=== PATIENT | male | born 1965 | race Caucasian/White ===

== ENCOUNTER 2016-10-04 16:42 | Inpatient (IN) ==
[2016-10-04] MEDS ORDERED: VANCOMYCIN IV PER PHARMACY MISC SCH (17:19)
--- NOTE | 2016-10-04 17:49 | HISTORY AND PHYSICAL ---
HISTORY OF PRESENT ILLNESS: Mr. Shar Hodges is a 51-year-old gentleman who is well known to me. He has a history of multiple medical problems, including major depression, mixed hyperlipidemia, BPH, COPD, obstructive sleep apnea, morbid obesity and type 2 insulin dependent diabetes mellitus. He was hospitalized at [facility] from 05/23/2016 to 05/25/2016 with a left thigh abscess with cellulitis. Dr. Barrett performed an incision and drainage of the abscess. Cultures grew out group B strep agalactiae. Mr. Hodges presents to my clinic today complaining of increasing pain, swelling and erythema of his scrotum in association with fevers as high as 101.5 degrees, nausea vomiting and hard shaking rigors. He noticed a small pustule on his scrotum on Saturday and popped it. Over the past several days, he has had increasing swelling, redness and pain of the scrotum. PAST MEDICAL HISTORY: Essential hypertension, COPD, obstructive sleep apnea, gastroesophageal reflux disease, mixed hyperlipidemia, depression. PAST SURGICAL HISTORY: Bilateral arthroscopy of the knees. ALLERGIES: No known drug allergies. MEDICATIONS: Tresiba 25 mg b.i.d., Humalog 20 units t.i.d. with meals, Zyprexa 5 mg b.i.d., Zoloft 100 mg daily, lovastatin 10 mg at bedtime, tamsulosin 0.4 mg daily, Dulera 100/5 one puff b.i.d., Ventolin HFA inhaler 2 puffs q.6 hours, niacin 500 mg daily. FAMILY HISTORY: His father had hypertension and diabetes. His mother had uterine cancer. SOCIAL HISTORY: He is a former smoker. He does consume alcoholic beverages. REVIEW OF SYSTEMS: General: He denies any recent weight gain or weight loss. HEENT: He wears glasses. CARDIOVASCULAR: No chest pain. Pulmonary: He has intermittent shortness of breath with strenuous activity. GI: No reflux, sour brash, dysphagia, melena or hematochezia. Endocrine: No polyuria, no polydipsia. Skin: No easy bruisability. : No leakage of urine with coughing or laughing. Neurologic: No migraines or seizures. Psychiatric: History of depression. PHYSICAL EXAMINATION: GENERAL: This is an acutely ill-appearing 51-year-old gentleman in no apparent distress. VITAL SIGNS: Blood pressure 132/80, pulse 92, temperature 101.1 degrees, respiratory rate 18. HEENT: Fundi with arteriolar wall thickening. Pupils equal, round, reactive to light. Extraocular eye movements intact. TMs without bullae. NECK: Supple. No masses, JVD or bruits. CARDIOVASCULAR: Regular rate and rhythm. LUNGS: Clear. ABDOMEN: Soft, nontender, with active bowel sounds. No hepatosplenomegaly. No abdominal bruits. EXTREMITIES: Without edema. SKIN: No palpable purpura. : He has significant swelling of the scrotum, which is at least 5 times its normal size. There is marked erythema induration and tenderness I do not see any obvious spread into the groin which would be suggestive of necrotizing fasciitis. ASSESSMENT AND PLAN: 1. Scrotal abscess with cellulitis. I am going to admit the patient to [facility]. I will began normal saline at 125 mL/hour and broad-spectrum antibiotics, including Zosyn 4.5 g IV q.6 hours and vancomycin, pending blood cultures and a wound culture. We will consult [facility] to see the patient. 2. Type 2 insulin-dependent diabetes mellitus. We will continue an 1800 calorie [place] [employer] diet, pattern sugars, Humulin R, sliding scale. Tresiba 25 mg b.i.d. and Humalog 20 units t.i.d. with meals. 3. Chronic obstructive pulmonary disease. Clinically he is stable. We will continue Dulera 1 puff b.i.d., and use Ventolin HFA inhaler 2 puffs q.6 hours as needed for shortness of breath. 4. Given the patient's comorbid conditions and clinical course, I believe that it is absolutely necessary to admit him to the hospital as attempting to treat him as an outpatient will pose significant and potential harm to the patient. I anticipate that the patient will be in the hospital for at least 2 midnights and I will therefore place him in inpatient status. I will begin Lovenox 40 mg subcutaneously daily for deep venous thrombosis prophylaxis.
[2016-10-04 18:07] LABS: MANUAL DIFF NEEDED? NO
[2016-10-04 18:21] LABS: BASO% 0.4 % (0.0-0.8); EOS# 0.11 X1000 (0.0-0.7); EOS% 0.8 % (0.0-10.0); HEMATOCRIT 40.1 % (42.0-52.0); HEMOGLOBIN 13.7 g/dL (14.0-18.0); IMM GRAN# 0.04 X1000 (0.0-0.04); IMM GRAN% 0.3 % (0.0-0.5); LYMPH# 1.64 X1000 (1.2-3.4); LYMPH% 12.3 % (20.5-51.1); MCH 29.7 PG (27-31); MCHC 34.2 g/dL (33-37); MONO# 0.77 X1000 (0.11-0.59); MONO% 5.8 % (1.7-9.3); MPV 10.9 FL (7.4-10.4); NEUT% 80.4 % (42.2-75.2); PLT 246 X1000 (130-400); RBC 4.61 XMIL (4.7-6.1)
[2016-10-04] MEDS: LOVENOX SUBQ SCH (18:28)
[2016-10-04 18:48] LABS: AGAP 16; ALBUMIN 3.5 g/dL (3.5-5.0); ALKALINE PHOSPHATASE 103 U/L (32-122); BUN 8 mg/dL (8-22); CALCIUM 8.6 mg/dL (8.8-10.2); CHLORIDE 90 mmol/L (98-107); COSMO 269; GOT 11 U/L (10-34); GPT 15 U/L (10-44); POTASSIUM 3.6 mmol/L (3.5-5.1); SODIUM 127 mmol/L (136-145); TCO2 21 mmol/L (25-35); TOTAL PROTEIN 7.2 g/dL (6.3-8.3)
[2016-10-04] MEDS: ZOSYN 4.5 GM/NS 100 ML IV SCH (18:51)
[2016-10-04] MEDS: ZYPREXA PO SCH (19:40)
[2016-10-04] MEDS: LANTUS SUBQ SCH (19:40)
[2016-10-04] MEDS: NAPROSYN PO SCH (19:40)
[2016-10-04] MEDS ORDERED: MEVACOR PO SCH (21:00)
[2016-10-04] MEDS ORDERED: VANCOMYCIN 2 GM in NS 500 ML IV SCH (21:00)
[2016-10-05] MEDS: LANTUS SUBQ SCH (00:41)
[2016-10-05] MEDS: ZYPREXA PO SCH ×3 (00:41→23:09)
[2016-10-05] MEDS: NAPROSYN PO SCH ×3 (00:41→23:08)
[2016-10-05] MEDS: ZOSYN 4.5 GM/NS 100 ML IV SCH ×5 (00:46→23:08)
[2016-10-05] MEDS ORDERED: FLUZONE QUAD 2016-2017 SYRINGE IM ONE (06:00)
[2016-10-05] MEDS ORDERED: HUMALOG SUBQ SCH ×2 (07:00→16:00)
[2016-10-05] MEDS ORDERED: LANTUS SUBQ SCH (08:06)
--- NOTE | 2016-10-05 09:08 | PROGRESS NOTE ---
DATE: 10/05/2016 SUBJECTIVE: Mr. Hodges was admitted with cellulitis and abscess of the scrotum. He has a little bit less swelling and erythema this morning. He is still with complaint of a lot of scrotal pain. He did have a leukocytosis of 13,000. His blood pressure is well controlled. He denies any chest pain, palpitations, or anginal equivalents. Blood sugars are fluctuating. He has polyuria and polydipsia. OBJECTIVE: Vital Signs: Temperature 98.1 degrees, pulse 55, respirations 18, BP 115/69. CV: Regular rate and rhythm. Lungs: Clear. Abdomen: Soft, nontender, with active bowel sounds. : He has marked swelling of the scrotum. There is erythema and induration along the entire scrotal sac. There is some induration trending into the groin on the left. I do not see any spread of infection up the buttocks. ASSESSMENT AND PLAN: 1. Cellulitis of the scrotum. We will continue broad-spectrum antibiotics including Zosyn and vancomycin pending cultures. I will consult Dr. Shaver to see the patient. At this point, I do not see any obvious evidence of necrotizing fasciitis, but we will monitor him closely. 2. Type 2 insulin-dependent diabetes mellitus. Blood sugars are too high. I am going to increase the Lantus to the 35 units subcutaneously b.i.d. and increase the Humalog to 30 units t.i.d. with meals.
[2016-10-05] MEDS: FLOMAX PO SCH (09:41)
[2016-10-05] MEDS: ASPIRIN PO SCH (09:42)
[2016-10-05] MEDS: NIACIN PO SCH (09:42)
[2016-10-05] MEDS: ZOLOFT PO SCH (09:42)
[2016-10-05] MEDS: HUMALOG SUBQ SCH ×2 (09:52→16:43)
--- NOTE | 2016-10-05 12:12 | PROGRESS NOTE ---
DATE: 10/05/2016 SUBJECTIVE: Mr. Hodges was admitted to [facility] with a scrotal abscess and cellulitis. He still has significant swelling of the scrotum, but the scrotal sac seems less erythematous, less indurated, and smaller as compared to admission. He is on Zosyn and vancomycin pending blood cultures. He has a longstanding history of type 2 insulin-dependent diabetes mellitus. His blood sugars are fluctuating. He has polyuria and polydipsia. OBJECTIVE: Vital signs: Temperature 97.9 degrees, pulse 62, respirations 16, blood pressure 112/52. Cardiovascular: Regular rate and rhythm. Lungs: Clear. Abdomen: Soft, nontender, with active bowel sounds. Genitourinary: There is marked swelling, erythema, and induration of the scrotal sac. There is some induration in the inner left-sided groin. ASSESSMENT AND PLAN: 1. Scrotal abscess with cellulitis. I will continue intravenous antibiotics including vancomycin and Zosyn pending cultures. We will consult Dr. Shaver to see the patient. 2. Type 2 insulin-dependent diabetes mellitus, poorly controlled. Sugars are way too high. We will continue pattern sugars, Humulin R sliding scale, and I will increase the Humalog to 30 units t.i.d. with meals and increase the Lantus to 35 units b.i.d.
[2016-10-05] MEDS: TYLENOL PO PRN ×2 (12:48→23:08)
[2016-10-05] MEDS: VANCOMYCIN 2 GM in NS 500 ML IV SCH (14:44)
--- NOTE | 2016-10-05 16:47 | CONSULTATION ---
DATE OF CONSULTATION: 10/05/2016 CONSULTING PHYSICIAN: Dr. Sergey Carreon. Consultation for scrotal cellulitis and groin cellulitis. HISTORY OF PRESENT ILLNESS: A 51-year-old male with poorly-controlled diabetes who has a recent history of left posterior thigh abscess in April 2016 requiring incision and debridement by General Surgery. He reports feeling a "bump" in his groin and "popping it." He then reports he continued to squeeze it as he felt more pressure and discomfort. Over the next several days he developed significant redness and swelling in the groin area that extended to his scrotum and suprapubic area. He does report fevers up to 101.5. He denies significant drainage. PAST MEDICAL HISTORY: 1. Diabetes mellitus. 2. Morbid obesity. 3. COPD. 4. Hyperlipidemia. 5. Depression. 6. Obstructive sleep apnea. 7. GERD. PAST SURGICAL HISTORY: 1. Knee arthroscopy. 2. Incision and drainage of posterior thigh. ALLERGIES: No known drug allergies. HOME MEDICATIONS: Tresiba, Humalog, Zyprexa, Zoloft, lovastatin, tamsulosin, Dulera, Ventolin, niacin. SOCIAL HISTORY: Former smoker, occasional alcohol, denies illicit drugs. FAMILY HISTORY: Negative for malignancies. REVIEW OF SYSTEMS: A review of systems reviewing 12 systems is negative except for the HPI. PHYSICAL EXAMINATION: T 98, P 67, BP 113/46.General: No acute distress. Pleasant male. HEENT: Normocephalic atraumatic. Pulmonary: Bilateral breath sounds. Cardiovascular: Regular rate. Abdomen: Protuberant. Nontender to palpation. : Normal penile shaft and urethral meatus. Indurated and erythematous scrotum with the left hemiscrotum involved more than the right side. I could not palpate the left testis due to induration. The induration extends into the inguinal ring and toward the suprapubic area. He also has some erythema over his posterior thigh but does not involve the perineum or buttocks. There is no crepitus, fluctuance or purulent drainage seen by me today pending in any of the described area. Digital rectal examination: Deferred today the pain due to scrotal discomfort. Dermatologic: No obvious skin rashes. Neurologic: Alert and oriented x3. Psychiatric: Appropriate mood and affect. PERTINENT LABS: White cell count of 13,000. Creatinine of 0.9. His glucose was documented at 375. PERTINENT IMAGES: None. ASSESSMENT AND PLAN: A 51-year-old male with a scrotal and groin cellulitis. I do not appreciate any abscess or any evidence of Gonzalez's gangrene at this time. I have discussed with the patient that without a definitive fluctuance or obvious abscess to perform an incision and drainage would likely yield low result. We discussed that cellulitis is better to be treated with intravenous antibiotics. He is on Zosyn and vancomycin per Dr. Carreon. I have discussed with the patient that if his condition deteriorates or he develops an obvious abscess site then he would benefit from incision and drainage. PLAN: I agree with broad-spectrum antibiotics. I did not see a place to culture his scrotum at this time. We will follow the patient. Thank you for the consultation.
[2016-10-05] MEDS: LOVENOX SUBQ SCH (18:34)
[2016-10-05] MEDS: INSULIN DEGLUDEC 25 UNIT SQ SCH (23:09)
[2016-10-06] MEDS: VANCOMYCIN 2 GM in NS 500 ML IV SCH ×2 (02:41→16:55)
[2016-10-06] MEDS: ZOSYN 4.5 GM/NS 100 ML IV SCH ×3 (06:22→21:42)
[2016-10-06] MEDS ORDERED: INSULIN PEN NEEDLES ONE (06:56)
[2016-10-06] MEDS: HUMALOG SUBQ SCH ×2 (07:14→16:55)
[2016-10-06] MEDS: INSULIN DEGLUDEC 25 UNIT SQ SCH (10:02)
[2016-10-06] MEDS: TYLENOL PO PRN (10:04)
[2016-10-06] MEDS: ASPIRIN PO SCH (10:04)
[2016-10-06] MEDS: NAPROSYN PO SCH ×2 (10:04→21:42)
[2016-10-06] MEDS: NIACIN PO SCH (10:05)
[2016-10-06] MEDS: ZOLOFT PO SCH (10:05)
[2016-10-06] MEDS: ZYPREXA PO SCH ×2 (10:05→21:42)
[2016-10-06] MEDS: FLOMAX PO SCH (10:05)
[2016-10-06] MEDS: DULERA 100 MCG/5 MCG INHALER INH SCH (10:08)
--- NOTE | 2016-10-06 12:28 | CONSULTATION ---
DATE OF CONSULTATION: 10/06/2016 SUBJECTIVE: Mr. Hodges reports a decent night overnight. He states his pain is minimally worse. He denies fever or chills. He does deny spontaneous drainage onto the bedsheets. OBJECTIVE: Vital signs: T is 97.6, P is 59, BP 123/56, General: In no acute distress. Abdomen: Protuberant, nontender to palpation. : Area of erythema has extended from the scrotum to his penile shaft. There is still no perineal involvement. There is no fluctuance appreciated. No crepitance, but there is an approximately 6 or 8 mm spontaneous tract in his left groin that appears to have opened up and drained onto the bedsheets. LABS: None today. ASSESSMENT: A 51-year-old male with cellulitis who is clinically mildly worse. I have discussed with the patient that he does not have a definitive abscess, however, he has had some drainage, and that if he does not improve would continue IV antibiotics. He would benefit from incision and debridement. I have offered to do it as early as tomorrow, given the fact that he just at breakfast. He states he wants to wait a couple of days and not to do anything until Saturday at earliest. PLAN: 1. Continue IV antibiotics. 2. Will not proceed to the OR, although if he clinically gets worse, I would strongly recommend for him to do something.
--- NOTE | 2016-10-06 12:49 | PROGRESS NOTE ---
DATE: 10/06/2016 SUBJECTIVE: The patient states that clinically he is not really a whole bunch better. He has seen urologist twice here, and they wanted to try antibiotics over the weekend to see if they can stabilize him rather than diving directly into any type of surgical procedure on his scrotum. His pain is reasonably controlled. His fever has been low grade, and he is not uncomfortable. OBJECTIVE: Vital signs: 97.6, 59, 17, 123/56. Fluid balance not kept. General: Patient is alert, oriented, conversive, and appropriate. He is morbidly obese. Lungs: Clear to auscultation. Cardiovascular: Regular, not tachycardic. Abdomen: Protuberant. Extremities: Extremities show only a trace of peripheral edema. Dr. Shaver reviewed the patient's cellulitis earlier today, and I have not done that examination. ASSESSMENT AND PLAN: 1. The patient's cellulitis will continue to be treated with Zosyn. Blood cultures are negative at 48 hours. Hopefully we can avoid surgery. Dr. Shaver is following. 2. Patient's diabetes is not well controlled. I have increased his Tresiba by 3 units per dose to hopefully give him a higher basal insulin dose. We will continue to monitor his blood sugars. He is on a diabetic diet. 3. In regard to his diabetes, it is noted the patient is on Zyprexa, which seems to exacerbate weight gain and diabetic situations. Consideration for use of Geodon instead or discontinuation of an antipsychotic medication altogether in the future should be undertaken. INDICATIONS FOR CONTINUED HOSPITALIZATION: The patient is only marginally clinically improved. We will continue to follow with subspecialty medicine, monitor temperature, and recheck a white count in the morning.
[2016-10-06] MEDS: NORCO-5 PO PRN ×2 (16:52→22:58)
[2016-10-06] MEDS: LOVENOX SUBQ SCH (17:02)
[2016-10-06] MEDS: INSULIN DEGLUDEC 28 UNIT SQ SCH (21:42)
[2016-10-07] MEDS: VANCOMYCIN 2 GM in NS 500 ML IV SCH ×2 (04:41→16:54)
[2016-10-07 05:34] LABS: MANUAL DIFF NEEDED? NO
[2016-10-07 05:44] LABS: BASO% 0.7 % (0.0-0.8); EOS# 0.48 X1000 (0.0-0.7); EOS% 5.2 % (0.0-10.0); HEMOGLOBIN 12.8 g/dL (14.0-18.0); IMM GRAN# 0.04 X1000 (0.0-0.04); IMM GRAN% 0.4 % (0.0-0.5); LYMPH# 1.73 X1000 (1.2-3.4); LYMPH% 18.9 % (20.5-51.1); MCH 29.8 PG (27-31); MCHC 33.7 g/dL (33-37); MCV 88.6 FL (81-99); MONO# 0.47 X1000 (0.11-0.59); MONO% 5.1 % (1.7-9.3); MPV 10.3 FL (7.4-10.4); NEUT% 69.7 % (42.2-75.2); PLT 285 X1000 (130-400); RBC 4.29 XMIL (4.7-6.1)
[2016-10-07 06:20] LABS: AGAP 12; ALBUMIN 2.8 g/dL (3.5-5.0); ALKALINE PHOSPHATASE 82 U/L (32-122); BUN 8 mg/dL (8-22); CALCIUM 7.7 mg/dL (8.8-10.2); CHLORIDE 102 mmol/L (98-107); COSMO 277; GOT 10 U/L (10-34); GPT 10 U/L (10-44); POTASSIUM 3.2 mmol/L (3.5-5.1); SODIUM 136 mmol/L (136-145); TCO2 22 mmol/L (25-35); TOTAL BILIRUBIN 0.33 mg/dL (0.20-1.00); TOTAL PROTEIN 6.5 g/dL (6.3-8.3)
[2016-10-07] MEDS: ZOSYN 4.5 GM/NS 100 ML IV SCH ×4 (06:57→20:36)
[2016-10-07] MEDS: NORCO-5 PO PRN ×3 (07:02→18:54)
[2016-10-07] MEDS: DULERA 100 MCG/5 MCG INHALER INH SCH ×2 (07:48→18:24)
[2016-10-07] MEDS: ZOLOFT PO SCH (08:44)
[2016-10-07] MEDS: NAPROSYN PO SCH ×2 (08:44→20:37)
[2016-10-07] MEDS: NIACIN PO SCH (08:44)
[2016-10-07] MEDS: ASPIRIN PO SCH (08:45)
[2016-10-07] MEDS: FLOMAX PO SCH (08:45)
[2016-10-07] MEDS: INSULIN DEGLUDEC 28 UNIT SQ SCH ×2 (08:45→20:37)
[2016-10-07] MEDS: HUMALOG SUBQ SCH ×3 (08:49→16:54)
[2016-10-07] MEDS ORDERED: KLOR-CON PO ONE (10:37)
--- NOTE | 2016-10-07 13:06 | PROGRESS NOTE ---
DATE: 10/07/2016 SUBJECTIVE: The patient states he feels like the swelling in scrotal area is more than it has been. He took a shower this morning and had some bloody drainage from the open wound site. Overall his pain is reduced and improved with the use of some narcotics about twice a day. We discussed his use of Zyprexa and he was not sure why he is taking and so I am going to reduce the dose and hopefully we can maintain some better glycemic control and that may afford him some weight loss in the future. VITAL SIGNS: 98, 108/52, 60 and 16. He has been afebrile for the last 24 hours. PHYSICAL EXAMINATION: General: He is a well-developed, obese white male, in no acute distress. He is alert, oriented, conversive, and appropriate. Lungs: Clear. Cardiovascular: Regular. Genitourinary: I did not view the scrotal wound and will leave that to the urology [facility] consultant. LABORATORIES: White cell count is 9.1, hematocrit 38. Potassium was slightly low at 3.2. Blood sugars are trending down slightly. This morning it was 173. ASSESSMENT AND PLAN: 1. The patient's cellulitis and scrotal abscess will continue to be treated with Zosyn. Blood cultures were negative at [address] Shaver is following. Hopefully, we can avoid surgery. 2. The patient's diabetes is not well controlled. In addition to increasing his Tresiba I have added a lunchtime shot of 15 units of Humalog. 3. I have reduced the patient's Zyprexa dose down to 2.5 mg p.o. at bedtime. 4. The patient's indication for continued hospitalization are persistent swelling and cellulitis in scrotal area. We will continue antibiotics and monitoring of temperature and try to achieve better glycemic control in the hopes of improving his ability for wound healing and infection resistance.
[2016-10-07] MEDS ORDERED: SODIUM CHLORIDE 0.9% 10 ML ONE (13:30)
--- NOTE | 2016-10-07 16:17 | PROGRESS NOTE ---
DATE: 10/07/2016 SUBJECTIVE: Mr. Hodges reports his pain had slightly worsened. He is not able to visualize the scrotum due to his body habitus but he does report more swelling as evident by palpation. He denies fevers. He is on broad-spectrum antibiotics. OBJECTIVE: Vital Signs: T 98, degrees, P 60, BP 108/52. General: No acute distress. Pleasant male. Abdomen: Protuberant, nontender palpation. : His penile shaft is more edematous. Scrotum was more edematous as well, on the left inferior portion of scrotum it does appear like he might have a area of fluctuance which is where he had spontaneous drainage on the sheet the day before. Perineum is still not involved, there is no crepitus. No obvious evidence of gangrene. PERTINENT LABS: White cell count is 9000, creatinine is 0.89. ASSESSMENT: A 51-year-old male with scrotal and groin cellulitis which is not rapidly responded to intravenous antibiotics. In fact clinically he is somewhat worse. I have offered him yesterday to perform incision and debridement but he declined. I have explained to him today that it is unlikely that antibiotics will resolve his issue and he would benefit from incision and debridement of the scrotal and inguinal area. We discussed risks associated with the procedure including but not limited to, bleeding, infection, injury to adjacent structures, recurrence of infection, need for additional interventions. He voiced understanding and wants to proceed and is in agreement. PLAN: 1. NPO after midnight. 2. To operating room tomorrow for incision and debridement of scrotal abscess.
[2016-10-07] MEDS: LOVENOX SUBQ SCH (16:55)
[2016-10-07] MEDS: ZYPREXA PO SCH (22:01)
[2016-10-08] MEDS: DULERA 100 MCG/5 MCG INHALER INH SCH ×4 (00:44→22:30)
[2016-10-08] MEDS: ZOSYN 4.5 GM/NS 100 ML IV SCH ×4 (03:00→22:31)
[2016-10-08] MEDS: VANCOMYCIN 2 GM in NS 500 ML IV SCH ×2 (04:49→17:39)
[2016-10-08] MEDS: HUMALOG SUBQ SCH ×3 (06:28→16:43)
[2016-10-08] MEDS: NORCO-5 PO PRN (06:47)
[2016-10-08] MEDS: ZOLOFT PO SCH (09:34)
[2016-10-08] MEDS: FLOMAX PO SCH (09:35)
[2016-10-08] MEDS: NIACIN PO SCH (09:36)
[2016-10-08] MEDS: NAPROSYN PO SCH (09:36)
[2016-10-08] MEDS: INSULIN DEGLUDEC 28 UNIT SQ SCH ×2 (09:37→21:10)
[2016-10-08] MEDS ORDERED: NEOSPORIN G.U. IRRIGANT ONE (13:02)
[2016-10-08] MEDS ORDERED: LR 1,000 ML ONE ×2 (13:42→14:55)
[2016-10-08] MEDS: DILAUDID ONE ×2 (13:53→14:03)
--- NOTE | 2016-10-08 14:44 | PROGRESS NOTE ---
DATE: 10/08/2016 SUBJECTIVE: The patient voices no complaints. He is scheduled for incision and debridement of scrotal abscess today. Dr. Shaver's analysis from yesterday was reviewed through his progress note with the patient and he was amenable to proceeding. He has been NPO after midnight but his blood sugars are better than they have been throughout his hospitalizations, now in the 120-160 range. OBJECTIVE: Vital signs: 98.7, 67, 16 116/51, 98% saturated on room air. Lungs: Clear. Cardiovascular: Regular. : Scrotal wound was not observed. ASSESSMENT AND PLAN: 1. The patient is scheduled for debridement per Dr. Shaver today. 2. We will continue the patient's Tresiba and Humalog when he resumes eating postoperatively. We will continue to monitor his blood sugar as this will be very important for his wound healing.
[2016-10-08] MEDS ORDERED: XYLOCAINE-MPF 2% ONE (14:55)
[2016-10-08] MEDS ORDERED: ANESTHESIA PB SET 88 IN 5742 ONE (14:55)
[2016-10-08] MEDS ORDERED: EXTENSION SET 32 IN 4522 ONE (14:55)
[2016-10-08] MEDS ORDERED: MORPHINE IV PRN (15:01)
[2016-10-08] MEDS ORDERED: VERSED ONE (15:13)
[2016-10-08] MEDS ORDERED: DIPRIVAN 1% ONE (15:13)
[2016-10-08] MEDS ORDERED: FENTANYL ONE (15:13)
--- NOTE | 2016-10-08 16:42 | OPERATIVE NOTE ---
PROCEDURE DATE: 10/08/2016 SURGEON: Kris Shaver MD PREOPERATIVE DIAGNOSES: 1. Scrotal abscess. 2. Cellulitis. 3. Hydrocele. PRIMARY PROCEDURES: Incision and debridement of scrotal, perineal, and groin abscesses. INDICATIONS: A 51-year-old male with poorly controlled diabetes who had an abscess of his posterior thigh several months ago. He presented with swelling in the scrotum, which progressively worsened. He was admitted to the hospital and started on broad-spectrum antibiotics. He originally did not have any evidence of fluctuance, but after couple days of IV antibiotics. He developed spontaneous drainage toward his left inferior portion of the scrotum and groin. He was counseled on drainage and risks were explained. FINDINGS: The scrotum mainly had reactive fluid consistent with a hydrocele, but there was some purulent drainage at the base of the scrotum, perineum was involved to an extent with majority of the purulent material extracted from the groin area. Adequate hemostasis at conclusion of the case. The wound fluid was sent off for culture. DESCRIPTION OF PROCEDURE: After obtaining informed consent, patient was brought to the operating room. Perioperative antibiotics and laryngeal mask airway anesthesia were administered. He was placed in lithotomy position with his upper and lower extremities appropriately padded. He was prepped and draped in sterile fashion. An 11 blade knife was used to make an incision along the left groin area, copious amount of fluid with some purulent material was extracted. The surgeon's finger was used to dissect along the natural planes. I dissected nearly to the level of the external inguinal ring. It did not appear that there was extension beyond that. I then freed up and dissected tissues toward the perineum, once again expressing some more fluid, which was concerning for pus, a counter incision was made in the perineal area to allow adequate gravity drainage. Finally counter incision was made in the scrotum. I made sure with finger dissection that all of the incisions connected. We then used copious irrigation with irrigant to clear out all the involved pockets. Once that was done, a [address] drain was placed affectively draining all [address] were secured to the skin with 2-0 silk suture. Gauze soaked with irrigant was packed into the perineal wound. He was extubated and taken to PACU for further recovery. ESTIMATED BLOOD LOSS: 50 mL. COMPLICATIONS: None. DISPOSITION: To PACU subsequently floor for observation with pain medications and Ct drain due to gravity drainage.
[2016-10-08] MEDS: PERIDEX MT SCH (21:08)
[2016-10-08] MEDS: ZYPREXA PO SCH (21:13)
[2016-10-08] MEDS: NORCO-10 PO PRN (22:19)
[2016-10-09] MEDS: ZOSYN 4.5 GM/NS 100 ML IV SCH ×4 (01:01→21:44)
[2016-10-09] MEDS: NORCO-10 PO PRN ×4 (04:51→21:43)
[2016-10-09] MEDS: VANCOMYCIN 2 GM in NS 500 ML IV SCH ×2 (05:17→17:35)
[2016-10-09] MEDS: HUMALOG SUBQ SCH ×3 (06:43→17:37)
[2016-10-09] MEDS: TYLENOL PO PRN (07:39)
[2016-10-09] MEDS: PERIDEX MT SCH ×2 (09:41→21:44)
[2016-10-09] MEDS: FLOMAX PO SCH (09:42)
[2016-10-09] MEDS: ZOLOFT PO SCH (09:42)
[2016-10-09] MEDS: INSULIN DEGLUDEC 28 UNIT SQ SCH ×2 (09:43→21:44)
[2016-10-09] MEDS: NIACIN PO SCH (09:48)
[2016-10-09] MEDS ORDERED: INSULIN PEN NEEDLES ONE (15:21)
[2016-10-09] MEDS: DULERA 100 MCG/5 MCG INHALER INH SCH (18:25)
[2016-10-09] MEDS ORDERED: DULCOLAX PO PRN (19:13)
--- NOTE | 2016-10-09 21:25 | PROGRESS NOTE ---
DATE: 10/09/2016 SUBJECTIVE: The patient's chart was reviewed. In summary, patient was admitted on 10/04/16 secondary to a scrotal abscess with associated cellulitis. The patient was placed on broad- spectrum antibiotics. Unfortunately, despite aggressive measures, patient's condition continued to progress. Dr. Shaver was consulted. Ultimately, an incision and debridement of the scrotal, perineal, and groin abscesses were performed on 10/08/16. Cultures were drawn and have grown gram positive cocci. Postoperatively, patient states he has done reasonably well. This morning, patient notes postsurgical pain, but overall improvement. He denies systemic symptoms, including fevers, chills, nausea, vomiting, shortness of breath, or chest discomfort. His blood sugars have been treated with insulin therapy, titrated over the weekend by Dr. De. Blood sugars have improved considerably. OBJECTIVE: Vital signs: Temperature maximum 98.1 degrees, heart rate 55-74, respirations 14-18, blood pressure 105-122/46-64. General: No acute distress. Cardiovascular: Regular rate and rhythm. No significant murmurs, rubs, or gallops. Pulmonary: Clear to auscultation bilaterally. Abdomen: Soft, nontender, nondistended. Positive bowel sounds. Extremities: Moves all extremities well. No significant clubbing or cyanosis. Patient has 1+ lower extremity edema bilaterally. Dermatologic: Evaluation reveals a dressed scrotal wound. LABORATORY DATA: None. ASSESSMENT AND PLAN: 1. Scrotal abscess/scrotal cellulitis-patient is status post incision and debridement of multiple abscesses. I appreciate Dr. Shaver's consultation. For now, we will continue broad-spectrum antibiotic coverage. We will follow up culture data. 2. Diabetes-as above, over the weekend Dr. De titrated insulin to achieve adequate control. For now, we will continue his current regimen. 3. Chronic obstructive pulmonary disease-we will continue patient on Dulera therapy. His symptoms are controlled. 4. Constipation-the patient has experienced increased constipation while hospitalized. This likely is secondary to a combination of pain medications and inactivity. We will add Colace twice daily and as needed Dulcolax. 5. Disposition-at this point, patient continues to require alf care in a hospital setting. We will plan discharge home once appropriate.
[2016-10-09] MEDS: ZYPREXA PO SCH (21:43)
[2016-10-09] MEDS: COLACE PO SCH (21:44)
[2016-10-09] MEDS: ZOFRAN IV PRN (21:50)
[2016-10-10] MEDS: ZOSYN 4.5 GM/NS 100 ML IV SCH ×4 (02:30→20:30)
[2016-10-10] MEDS: NORCO-10 PO PRN ×4 (04:54→20:26)
[2016-10-10] MEDS: DULERA 100 MCG/5 MCG INHALER INH SCH ×2 (07:31→20:15)
[2016-10-10] MEDS: HUMALOG SUBQ SCH ×3 (08:59→17:25)
[2016-10-10] MEDS: NIACIN PO SCH (09:00)
[2016-10-10] MEDS: PERIDEX MT SCH ×2 (09:00→21:27)
[2016-10-10] MEDS: FLOMAX PO SCH (09:03)
[2016-10-10] MEDS: ZOLOFT PO SCH (09:04)
[2016-10-10] MEDS: COLACE PO SCH ×2 (09:04→21:48)
[2016-10-10] MEDS: INSULIN DEGLUDEC 28 UNIT SQ SCH ×2 (09:04→21:48)
[2016-10-10 10:57] LABS: MANUAL DIFF NEEDED? NO
[2016-10-10 11:04] LABS: EOS# 0.42 X1000 (0.0-0.7); EOS% 5.8 % (0.0-10.0); HEMATOCRIT 33.2 % (42.0-52.0); HEMOGLOBIN 10.8 g/dL (14.0-18.0); IMM GRAN# 0.04 X1000 (0.0-0.04); IMM GRAN% 0.5 % (0.0-0.5); LYMPH# 1.35 X1000 (1.2-3.4); LYMPH% 18.5 % (20.5-51.1); MCH 29.8 PG (27-31); MCHC 32.5 g/dL (33-37); MCV 91.5 FL (81-99); MONO# 0.55 X1000 (0.11-0.59); MONO% 7.5 % (1.7-9.3); MPV 9.9 FL (7.4-10.4); NEUT% 66.7 % (42.2-75.2); PLT 290 X1000 (130-400); RBC 3.63 XMIL (4.7-6.1)
[2016-10-10 11:32] LABS: ALBUMIN 2.7 g/dL (3.5-5.0); POTASSIUM 3.6 mmol/L (3.5-5.1); TOTAL BILIRUBIN 0.42 mg/dL (0.20-1.00); TOTAL PROTEIN 6.3 g/dL (6.3-8.3)
[2016-10-10] MEDS: ZOFRAN IV PRN ×2 (12:44→21:38)
--- NOTE | 2016-10-10 14:49 | PROGRESS NOTE ---
DATE: 10/10/2016 SUBJECTIVE: This morning, patient states he is feeling reasonably well. Overnight, patient states he did not sleep well secondary to intermittent discomfort. He complains of increasing scrotal swelling. He denies systemic symptoms including fevers, chills, nausea, vomiting, shortness of breath, or chest discomfort. His p.o. intake is adequate. Culture data returned today positive for Streptococcus agalactiae sensitive to ampicillin, vancomycin, levofloxacin and penicillin. OBJECTIVE: Vital Signs: T-max 98.4 degrees, heart rate 50 2-64, respirations 14 to 18, blood pressure 105 to 120/51 to 65. General: Well nourished, well developed, in no acute distress. Cardiovascular: Regular rate and rhythm. No significant murmurs, rubs, or gallops. Pulmonary: Clear to auscultation bilaterally. Abdomen: Soft, nontender, nondistended. Positive bowel sounds. Extremities: Moves all extremities well with 2+ lower extremity edema bilaterally. Dermatologic: Evaluation reveals improvement in the scrotal cellulitis. Scrotal examination reveals significant edema. LABORATORY DATA: White blood cell count 7.30, hemoglobin 10.8, hematocrit 33.2, platelet count 290,000. Sodium 137, potassium 3.6, chloride 103, bicarb 23, BUN 14, creatinine 2.2. Glucose 144, calcium 8, total bilirubin 0.42, total protein 6.3, albumin 2.7, alkaline phosphatase 65, AST 13, ALT 11. ASSESSMENT AND PLAN: 1. Scrotal abscess/scrotal cellulitis - The patient is postoperative day incision and debridement of scrotal abscesses. The patient tolerated the procedure reasonably well. He continues to have intermittent pain, but overall is improving. The patient's cultures grew Streptococcus agalactiae. We will discontinue vancomycin. We will continue Zosyn therapy. 2. Scrotal edema - Patient has considerable scrotal edema on examination today. Unfortunately, because patient has developed acute renal failure, I am unable to diurese. We will follow patient's renal function. We will encourage elevation of the scrotum. We will follow this as well. 3. Acute renal failure - This is quite curious. Patient's BUN is normal. Creatinine is increased to 2.2. As above, we will discontinue vancomycin secondary to sensitivities. At this point, I am hesitant to start IV fluids in the setting of volume overload state. We will follow patient's renal function closely. 4. Diabetes - The patient has achieved significant improvement in his blood sugars. We will titrate insulin therapy. We will continue his current regimen. 5. Chronic obstructive pulmonary disease - We will continue Dulera therapy. Symptoms are reasonably controlled. 6. Constipation - Patient was started on Colace twice daily and Dulcolax as needed yesterday. He is having adequate bowel movements at present time. 7. Disposition - At this point, patient continues to require long term care in the hospital setting. We will plan to discharge home once appropriate.
--- NOTE | 2016-10-10 15:55 | PROGRESS NOTE ---
DATE: 10/10/2016 SUBJECTIVE: Mr. Hodges had a decent night. He reports improving pain control. He was able to shower. OBJECTIVE: Vital signs: Temperature is 98.4, pulse 52, and BP 105/51. General: No acute distress. Abdomen: Protuberant. Nontender to palpation. : Persistently swollen scrotum. Two [place] drains are in place. Serosanguineous discharge on the sheets and chux pads, no evidence of fluctuance, crepitus, or gangrenous tissue noted. The perineum is involved but not past the midline. PERTINENT LABS: White cell count of 7,000, hematocrit of 32, and creatinine of 2.2. CULTURES: His wound culture so far is growing gram-positive cocci. ASSESSMENT: A 51-year-old male status-post scrotal, perineal, and inguinal abscesses that were all drained. I have explained to the patient again that he will go home with drains and I will see him in the clinic next week and remove them at that point. I have educated him on the use of feminine pads versus depends in the interim as he will continue to have serosanguineous drainage while the drains are in place. He voiced understanding. PLAN: 1. Awaiting final culture results in order to place him on appropriate antibiotics. 2. Agree with broad-spectrum coverage for now. 3. We will defer rising creatinine to the primary service. It should not be related to his operation directly. 4. As I am going out of town I have asked Dr. Perkins, my partner, to examine the patient while I am gone.
[2016-10-10 19:32] LABS: URINE CULTURE NEEDED? NO; URINE MICRO REVIEW NEEDED? NO; URINE SOURCE CLEAN CATCH
[2016-10-10 19:44] LABS: BILIRUBIN URINE NEGATIVE (NEGATIVE); BLOOD URINE NEGATIVE (NEGATIVE); COLOR YELLOW; GLUCOSE URINE NEGATIVE (NEGATIVE); LEUKOCYTES URINE NEGATIVE (NEGATIVE); NITRITE URINE NEGATIVE (NEGATIVE); PROTEIN URINE NEGATIVE (NEGATIVE); SP GRAVITY URINE 1.008; TURBIDITY URINE CLEAR (CLEAR); UR EPITHELIAL CELLS <10 /HPF (<10); URINE BACTERIA NEGATIVE /HPF; URINE RBC <10 /HPF (<10); URINE WBC <10 /HPF (<10); UROBILINOGEN URINE NORMAL (NORMAL)
[2016-10-10] MEDS: ZYPREXA PO SCH (21:38)
[2016-10-11] MEDS: ZOSYN 4.5 GM/NS 100 ML IV SCH (01:18)
[2016-10-11] MEDS: NORCO-10 PO PRN ×5 (01:19→21:10)
[2016-10-11] MEDS: HUMALOG SUBQ SCH ×3 (06:31→16:59)
[2016-10-11 07:14] LABS: MANUAL DIFF NEEDED? NO
[2016-10-11 07:21] LABS: BASO% 0.5 % (0.0-0.8); EOS# 0.32 X1000 (0.0-0.7); EOS% 4.4 % (0.0-10.0); HEMOGLOBIN 10.5 g/dL (14.0-18.0); IMM GRAN# 0.03 X1000 (0.0-0.04); IMM GRAN% 0.4 % (0.0-0.5); LYMPH# 1.17 X1000 (1.2-3.4); LYMPH% 15.9 % (20.5-51.1); MCH 29.2 PG (27-31); MCHC 31.8 g/dL (33-37); MCV 91.7 FL (81-99); MONO# 0.55 X1000 (0.11-0.59); MONO% 7.5 % (1.7-9.3); MPV 9.9 FL (7.4-10.4); NEUT% 71.3 % (42.2-75.2); PLT 294 X1000 (130-400)
[2016-10-11] MEDS: DULERA 100 MCG/5 MCG INHALER INH SCH ×2 (07:40→22:49)
[2016-10-11 07:45] LABS: ALBUMIN 2.9 g/dL (3.5-5.0); CALCIUM 7.5 mg/dL (8.8-10.2); TOTAL BILIRUBIN 0.25 mg/dL (0.20-1.00); TOTAL PROTEIN 5.7 g/dL (6.3-8.3)
--- NOTE | 2016-10-11 09:32 | PROGRESS NOTE ---
DATE: 10/11/2016 SUBJECTIVE: Mr. Hodges was admitted with a scrotal abscess and cellulitis. He has undergone drainage of scrotal, perineal, and inguinal abscesses. He still has scrotal edema but less erythema. Cultures grew out group B strep. Blood cultures are negative. Blood sugars are well controlled. Sugars are ranging from 81-154. He is voiding well but his creatinine has continued to trend upward. His creatinine was 0.8 on 10/07/2016 and it was 2.2 today. PHYSICAL EXAMINATION: Vital Signs: Temperature 98 degrees, pulse 51, respirations 22, BP 110/51. CV: Regular rate and rhythm. Lungs: Clear. Abdomen: Soft, nontender, with active bowel sounds. : He has a persistently swollen scrotum. No gangrene or crepitus. ASSESSMENT AND PLAN: 1. Scrotal abscess and cellulitis. We will continue broad-spectrum antibiotics including Zosyn but I will reduce the dosage of Zosyn to 2.25 g intravenous every 6 hours based on his renal function. Vancomycin was stopped yesterday. 2. Acute renal failure. I am going to consult Dr. Rios to see him in consultation. 3. Type 2 insulin dependent diabetes mellitus. We will continue Tresiba 28 units subcutaneously twice a day and Humalog 30 units with breakfast, 30 units at supper, and 15 units with lunch.
[2016-10-11] MEDS: ZOLOFT PO SCH (09:40)
[2016-10-11] MEDS: NIACIN PO SCH (09:40)
[2016-10-11] MEDS: FLOMAX PO SCH (09:40)
[2016-10-11] MEDS: COLACE PO SCH ×2 (09:40→21:12)
[2016-10-11] MEDS: ZOSYN 2.25 GM/NS 50 ML IV SCH ×3 (09:44→21:11)
[2016-10-11] MEDS: PERIDEX MT SCH ×2 (11:01→21:11)
--- NOTE | 2016-10-11 13:22 | Diag Imaging Result Document ---
PROCEDURE NAME: US RENAL 2 (RETROPER) COMPLETE - 10/11/2016 RENAL ULTRASOUND: COMPARISON: None available. FINDINGS: The kidneys are grossly normal in echotexture with no discrete mass or hydronephrosis. The right kidney measures 12.8 cm and the left kidney measures 13.9 cm in the greatest longitudinal axes. The right renal cortex measures up to 1.3 cm and the left renal cortex measures up to 1.7 cm in thickness. The urinary bladder is only slightly distended and is grossly unremarkable, otherwise. IMPRESSION: Essentially unremarkable renal ultrasound.
[2016-10-11 15:04] LABS: URINE MICRO REVIEW NEEDED? NO; URINE SOURCE VOIDED
[2016-10-11] MEDS ORDERED: INSULIN PEN NEEDLES ONE (15:05)
[2016-10-11 15:10] LABS: BILIRUBIN URINE NEGATIVE (NEGATIVE); BLOOD URINE NEGATIVE (NEGATIVE); COLOR YELLOW; GLUCOSE URINE NEGATIVE (NEGATIVE); LEUKOCYTES URINE NEGATIVE (NEGATIVE); NITRITE URINE NEGATIVE (NEGATIVE); PH URINE 5.5; PROTEIN URINE NEGATIVE (NEGATIVE); SP GRAVITY URINE 1.008; TURBIDITY URINE CLEAR (CLEAR); UROBILINOGEN URINE NORMAL (NORMAL)
[2016-10-11 15:12] LABS: UR EPITHELIAL CELLS <10 /HPF (<10); URINE BACTERIA NEGATIVE /HPF; URINE RBC <10 /HPF (<10); URINE WBC <10 /HPF (<10)
[2016-10-11 15:18] LABS: UR CREAT RANDOM 65.3 mg/dL (14-26); UR PROT RANDOM 9.7 mg/dL
--- NOTE | 2016-10-11 17:20 | CONSULTATION ---
DATE OF CONSULTATION: 10/11/2016 REASON FOR CONSULTATION: Acute kidney injury. HISTORY OF PRESENT ILLNESS: Mr. Hodges is a 51-year-old white male with obesity, diabetes, hypertension. He has previous problems with skin infections. He presented to the hospital after presenting to Dr. Carreon' office with fever and scrotal swelling, erythema, tenderness, drainage etc. He was admitted to the hospital and treated with empiric IV antibiotics and surgical drainage. His temperature has improved and his blood pressure has remained acceptable. No significant hypertension during his stay. In this context, he has developed acute kidney injury with creatinine rising from 0.9 on presentation to 2.1 on the , and 2.2 today. His urine output has been acceptable. He has no difficulty voiding and no lower abdominal pain or pressure. He has been able to eat without nausea or vomiting. Because of his ongoing acute kidney injury we were asked to see him in consultation. No chest pain, palpitation, shortness of breath etc. PAST MEDICAL HISTORY: As above. He also has obstructive sleep apnea, COPD, reflux disease, hyperlipidemia. HOME MEDICATIONS: Include Tresiba, Humalog, Zyprexa, Zoloft, lovastatin, tamsulosin, Dulera, Ventolin, niacin. ALLERGIES: None. SOCIAL HISTORY: Former smoker. Some alcohol. FAMILY HISTORY: Negative for kidney disease though he does have diabetes in his family. REVIEW OF SYSTEMS: Is obtained over 12 systems and otherwise noncontributory. PHYSICAL EXAMINATION: Vital Signs: Blood pressure 107/51, heart rate 60, respirations 20, afebrile. Generally: He is a morbidly obese, white male, sitting up, in no distress. Skin: Warm and dry. His wounds are not examined. HEENT: Conjunctivae are pink. Pupils are equal. Oropharynx is clear. Tongue is moist. Neck: Supple. Trachea is midline. No jugular venous distention. Heart: Regular. PMI is not palpable. No gallops or murmurs. Lungs: Have equal breath sounds. No crackles or wheezes. Abdomen: Soft, nontender. Bowel sounds are present. Extremities: Have 1+ edema. No clubbing or cyanosis. LABORATORY DATA: Sodium 136, potassium 4.0, chloride 101, bicarbonate 19, BUN 14, creatinine 2.2. Urinalysis with no blood or protein and urine sodium of 18. IMPRESSION: Acute kidney injury. Most likely acute tubular necrosis. His creatinine has plateaued over the last 24 hours. His urine output is good. He has no indications for hemodialysis at this time. No changes in his medication are required. We will follow.
[2016-10-11] MEDS: INSULIN DEGLUDEC 28 UNIT SQ SCH (21:12)
[2016-10-11] MEDS: ZYPREXA PO SCH (21:17)
[2016-10-12] MEDS: NORCO-10 PO PRN (00:56)
[2016-10-12] MEDS: ZOSYN 2.25 GM/NS 50 ML IV SCH ×4 (02:25→20:34)
[2016-10-12] MEDS: TYLENOL PO PRN (05:06)
[2016-10-12] MEDS ORDERED: INSULIN PEN NEEDLES ONE ×2 (06:41→15:42)
[2016-10-12 07:08] LABS: ALBUMIN 3.1 g/dL (3.5-5.0); CALCIUM 8.2 mg/dL (8.8-10.2); POTASSIUM 3.9 mmol/L (3.5-5.1)
[2016-10-12] MEDS: ZOLOFT PO SCH (08:00)
[2016-10-12] MEDS: NIACIN PO SCH (08:00)
[2016-10-12] MEDS: DULERA 100 MCG/5 MCG INHALER INH SCH ×3 (08:01→20:42)
[2016-10-12] MEDS: FLOMAX PO SCH (08:01)
[2016-10-12] MEDS: COLACE PO SCH ×2 (08:01→20:35)
[2016-10-12] MEDS: PERIDEX MT SCH ×2 (08:01→20:35)
[2016-10-12] MEDS: INSULIN DEGLUDEC 28 UNIT SQ SCH ×2 (08:08→20:48)
[2016-10-12] MEDS: HUMALOG SUBQ SCH ×3 (08:16→18:46)
[2016-10-12] MEDS: NS 1,000 ML IV SCH ×2 (08:20→20:39)
--- NOTE | 2016-10-12 09:36 | PROGRESS NOTE ---
DATE: 10/12/2016 SUBJECTIVE: Mr. Hodges was admitted to [facility] with a scrotal abscess and cellulitis. Cultures grew out group B strep. Drains are still in place. He is having progressively less swelling, erythema and induration of the scrotum. He remains afebrile. BP is stable. He denies any chest pain, palpitations or anginal equivalents. Renal function continues to trend upward. His BUN is stable, but his creatinine has jumped from 2.1 to 2.4. He is voiding freely. He has had no evidence of elevated potassium or pulmonary edema. A renal ultrasound was normal. Dr. Rios felt that he has an acute tubular necrosis. OBJECTIVE: Vital Signs: Temperature 98, pulse 56, respiratory rate 18, BP 133/53. CV: Regular rate and rhythm. Lungs: Clear. Abdomen: Soft, nontender, with active bowel sounds. No hepatosplenomegaly. No abdominal bruits. : There is diminished swelling and erythema and induration of the scrotum. ASSESSMENT AND PLAN: 1. Scrotal abscess with cellulitis clinically. He continues to improve. I would like to continue intravenous antibiotics for at least another 24 hours. At that point, we will switch him to oral antibiotics for an additional 10-[address] Shaver will see him next week in order to remove the drains. 2. Acute renal failure secondary to acute tubular necrosis. I am going to give him normal saline at 75 mL per hour and recheck a basic metabolic panel in the morning. Dr. Rios is making arrangements to see him as an outpatient next week, and will arrange for follow up lab work on Saturday and . 3. Type 2 insulin-dependent diabetes mellitus. Blood sugars are consistently less than 200. We will continue his current regimen of insulin.
--- NOTE | 2016-10-12 14:21 | PROGRESS NOTE ---
DATE: 10/12/2016 TIME SEEN: 0805. SUBJECTIVE: Mr. Hodges is resting in a chair. He has no complaints. He states that he is feeling a little bit better. He denies chest pain or increased work of breathing. OBJECTIVE: Vital signs: His most recent vital signs, his temperature is 98 degrees, blood pressure 133/53, heart rate 56, respirations 18. He remains on room air. Last recorded saturation is 93%. Input and output: He has had 340 in, 975 out per void. General: This is a 51-year-old white male. He is sitting up in a chair. He has no acute distress. Skin: Warm and dry. HEENT: Normocephalic, atraumatic. Conjunctivae pink. He has MAIRA. Mucous membranes moist. Neck: Supple. Trachea midline. He has no JVD. Cardiovascular: Regular rate and rhythm. He has no murmur or gallop appreciated. Lungs: Clear to auscultation anteriorly. Equal excursion. Abdomen: Large, round, soft, nontender, positive bowel sounds. Extremities: He has trace pretibial edema. Otherwise, no clubbing, or cyanosis. Integumentary : No rashes or lesions noted. We have not inspected his scrotal area of secondary to cellulitis. This is followed by the primary care team. Neurological: Alert and oriented x3. LABORATORY DATA: This a.m. sodium 139, potassium 3.9, chloride 104, CO2 21, BUN 13, creatinine 2.4, glucose 100. His anion gap is 21, calcium 8.2, phosphorus 3.1, albumin 3.1. Previous hemoglobin is 10.5. Again, his last hemoglobin is 10.5 on the . ASSESSMENT AND PLAN: Acute kidney injury, more than likely acute tubular necrosis. His urine output is adequate. He has stabilized on his blood urea nitrogen and creatinine , if not slight improvement on his blood urea nitrogen. He has good p.o. intake. There are no indications for intervention. We have discussed if patient is able to go home, that he is to be seen in our office within 2-3 weeks of discharge. We will plan for outpatient labs at the hospital so we can look at these on the same date that he has had them drawn on Saturday and . He is to call our office upon discharge. We have given him our card, and we will set this up at the time of discharge. Seen, data reviewed, discussed with Damon Vasquez on 10/12/16. I agree with the above assessment and plan of care. rg I would to thank you for allowing us to follow with this patient. Dictated by TRISTAN Fowler for Franco Constantine Rios MD MTDD
[2016-10-12] MEDS: ZOFRAN IV PRN (16:51)
[2016-10-12] MEDS: ZYPREXA PO SCH (20:35)
[2016-10-13] MEDS: ZOSYN 2.25 GM/NS 50 ML IV SCH (01:31)
[2016-10-13] MEDS ORDERED: INSULIN PEN NEEDLES ONE (06:44)
[2016-10-13] MEDS: DULERA 100 MCG/5 MCG INHALER INH SCH ×2 (07:20→09:50)
[2016-10-13 07:33] LABS: CALCIUM 8.1 mg/dL (8.8-10.2); POTASSIUM 3.7 mmol/L (3.5-5.1)
[2016-10-13 08:37] VITALS: BP 155/79
[2016-10-13] MEDS ORDERED: AMPICILLIN PO SCH (09:00)
[2016-10-13] MEDS: INSULIN DEGLUDEC 28 UNIT SQ SCH (09:48)
[2016-10-13] MEDS: FLOMAX PO SCH (09:50)
[2016-10-13] MEDS: NIACIN PO SCH (09:51)
[2016-10-13] MEDS: ZOLOFT PO SCH (09:51)
[2016-10-13] MEDS: COLACE PO SCH (09:51)
[2016-10-13] MEDS: HUMALOG SUBQ SCH (09:53)
[2016-10-13] MEDS: PERIDEX MT SCH (09:54)
--- NOTE | 2016-10-14 04:16 | DISCHARGE SUMMARY ---
ADMISSION DATE: 10/04/2016 DISCHARGE DATE: 10/13/2016 DISCHARGE DIAGNOSES: 1. Scrotal abscess with cellulitis. 2. Essential hypertension. 3. Type 2 insulin-dependent diabetes mellitus. 4. Chronic obstructive pulmonary disease. 5. Obstructive sleep apnea. 6. Depression. 7. Gastroesophageal reflux disease. 8. Morbid obesity. 9. Acute renal failure secondary to acute atubular necrosis. DISCHARGE INSTRUCTIONS: 1. The patient is to return to clinic to see me, Dr. Sergey Carreon, in 1 week. 2. Return to clinic to see Dr. Shaver on 10/16/2016, in order to remove drains. 3. Return to clinic to see Dr. Rios next week for followup labs. 4. An 1800 calorie, ADA diet. 5. Activity as tolerated. MEDICATIONS: Tresiba 28 units subcutaneously b.i.d., Humalog 20 units with breakfast, 15 units with lunch, and 30 units at dinner, Zyprexa 5 mg b.i.d., Zoloft 100 mg daily, Flomax 0.4 mg daily, Dulera 100/5 one puff b.i.d., Ventolin HFA inhaler 2 puffs q.6 hours p.r.n. dyspnea, niacin 500 mg daily, ampicillin 500 mg b.i.d. for 10 days, Lortab 10 one q.4-6 hours p.r.n. pain. PHYSICAL EXAMINATION: General: This is a well-developed, well-nourished, 51-year-old, gentleman in no apparent distress. Vital Signs: He is afebrile. Vital signs are stable. CV: Regular rate and rhythm. Lungs: Clear. Abdomen: Soft, nontender, with active bowel sounds. : There is still some residual scrotal edema and swelling. The scrotum is much less erythematous, much less indurated. Drains are still in place. HOSPITAL COURSE: Mr. Shar Hodges is a 51-year-old, gentleman who was admitted to [facility] with a scrotal abscess and cellulitis. We initially placed him on broad- spectrum antibiotics including Zosyn and vancomycin pending blood cultures. We consulted Dr. Shaver. We initially treated him with broad-spectrum antibiotics and Dr. Shaver performed incision and debridement of scrotal, perineal, and groin abscesses. Wound cultures grew out group B strep. Blood cultures were negative. Anaerobic cultures were normal. He responded well to the I and D of the abscess with broad-spectrum antibiotic coverage. Dr. Shaver and I felt that he could be safely switched to oral antibiotics as he was afebrile and no longer had a leukocytosis. He will complete a 10 day course of ampicillin 500 mg b.i.d. as an outpatient. He has a longstanding history of type 2 insulin-dependent diabetes mellitus. His blood sugars fluctuated. We maintained him on an 1800 calorie, ADA diet, patterned sugars, and a Humulin R sliding scale. We adjusted his regimen of insulin with stabilization of his sugars. His sugars were consistently less than 160. At the time of discharge, he was taking for Tresiba 28 units subcutaneously b.i.d., Humalog 30 units at breakfast, 15 units at lunch, and 30 units at dinner. During his hospitalization, he was noted to go into acute renal failure. His highest creatinine was 2.4. He was voiding freely. He had no evidence of hyperkalemia. There was no pulmonary edema. An ultrasound of the kidneys was unremarkable. Dr. Rios saw the patient in consultation and felt that he had an acute tubular necrosis. I gave him additional fluids last night and his creatinine was 2.[address] Rios felt that we could safely discharge him home and he will follow up with Mr. Hodges next week for lab work on Saturday and . I did ask him to avoid any antiinflammatory agents at this time. Having reached maximum hospital benefit, the patient was discharged in stable condition.
== END 2016-10-13 10:49 | disposition home or self-care (01) | DRG 579 ==
LOC: 4N 16:42 → DIRADM 16:42 → 4N 10-05 14:10 → 3N 10-09 10:13
PROVIDERS: ADMIT Internal Medicine; ATTEND Internal Medicine
PROC: 0J9B0ZZ Drainage of Perineum Subcutaneous Tissue and Fascia, Open Approach (ICD-10-PCS; 2016-10-08)
PROC: 0V950ZZ Drainage of Scrotum, Open Approach (ICD-10-PCS; 2016-10-08)
PROC: 0J9C00Z Drainage of Pelvic Region Subcutaneous Tissue and Fascia with Drainage Device, Open Approach (ICD-10-PCS; principal; 2016-10-08 12:43)
DX: L03.314 Cellulitis of groin (principal); N17.0 Acute kidney failure with tubular necrosis; Z68.42 Body mass index [BMI] 45.0-49.9, adult; N49.2 Inflammatory disorders of scrotum; L02.215 Cutaneous abscess of perineum; E11.65 Type 2 diabetes mellitus with hyperglycemia; I10 Essential (primary) hypertension; N43.3 Hydrocele, unspecified; E66.01 Morbid (severe) obesity due to excess calories; B95.1 Streptococcus, group B, as the cause of diseases classified elsewhere; F32.9 Major depressive disorder, single episode, unspecified; E78.2 Mixed hyperlipidemia; N40.0 Benign prostatic hyperplasia without lower urinary tract symptoms; J44.9 Chronic obstructive pulmonary disease, unspecified; G47.33 Obstructive sleep apnea (adult) (pediatric); K21.9 Gastro-esophageal reflux disease without esophagitis; K59.00 Constipation, unspecified; Z79.899 Other long term (current) drug therapy; Z79.4 Long term (current) use of insulin; Z82.49 Family history of ischemic heart disease and other diseases of the circulatory system; Z83.3 Family history of diabetes mellitus; Z80.49 Family history of malignant neoplasm of other genital organs; Z87.891 Personal history of nicotine dependence
CPT/HCPCS: 76770; 80053; 80069; 80202; 81001; 82565; 82570; 82948; 84156; 84300; 85025; 87040; 87070; 87075; 87077; 87186; 87205; 94761; 94799; J1170; J1650; J1815; J2250; J2405; J2543; J3010; J3370; J7030; J7040; J7120; 94640-76